=== PATIENT | male | born 1975 | race Caucasian/White ===

== ENCOUNTER 2016-08-12 19:53 | Emergency (ER) | payer MEDICAID ==
[~2016-08-12] VITALS: Ht 165.1 cm; Wt 64.0 kg
[~2016-08-12 19:53] MED LIST: IBUP-1542 PO; IBUP200C11
[2016-08-12 20:09] VITALS: Ht 165.1 cm; Wt 64.0 kg
[2016-08-12] MEDS ORDERED: LIDOCAINE 2% (MDV) 20 ML INJ INJ ONE (21:00)
[2016-08-12] MEDS ORDERED: ONDANSETRON 4 MG INJ IV STA (21:46)
[2016-08-12] MEDS ORDERED: morphine 10 MG INJ IV ONE (22:00)
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
[2016-08-12] MEDS ORDERED: KETOROLAC 30 MG INJ IV STA (23:54)
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
[2016-08-13] MEDS ORDERED: CEPH-443 PO (00:05)
[2016-08-13] MEDS ORDERED: IBUP-1542 PO (00:05)
[2016-08-13] MEDS ORDERED: HYDR-906 PO (00:05)
[2016-08-13 00:45] VITALS: BP 113/62; PULSE 68; RESP 17; TEMP 98.2
--- NOTE | 2016-08-13 01:01 | RADRPT ---
PROCEDURE: X-ray rib series CLINICAL INDICATION: right rib pain TECHNIQUE: Multiple images of the right ribs are obtained. COMPARISON: None available FINDINGS: Visualized osseous structures appear intact, without evidence of fracture or dislocation. There is no pneumothorax. Soft tissue structures appear within normal limits. IMPRESSION: No rib fracture identified on plain film. RPTAT: HBST .Binu Guaman MD, MD Date Time Electronically viewed and signed by .Binu Guaman MD, on 08/13/2016 01:00 .T/
--- NOTE | 2016-08-13 01:03 | RADRPT ---
PROCEDURE: XR Lumbar Spine. CLINICAL INDICATION: right sided back pain TECHNIQUE: AP, lateral and cone-down lateral views of the lumbar spine were obtained. COMPARISON: No prior studies are available for comparison. FINDINGS: There is a normal lumbar lordosis. Vertebral body heights appear normal. Intervertebral disk spaces are maintained There is no fracture or dislocation. The facet joints are unremarkable. There is no pars defect identified. The sacroiliac joints appear normal. The soft tissues appear unremarkable. IMPRESSION: Unremarkable lumbar spine. No visualized fracture or dislocation. RPTAT: HBST .Binu Guaman MD, MD Date Time Electronically viewed and signed by .Binu Guaman MD, on 08/13/2016 01:02 .T/
[2016-08-13] MEDS ORDERED: AMOX1TAB10 PO (02:23)
== END 2016-08-13 02:56 | disposition home or self-care (01) ==
LOC: FTE 19:53
DX: S01.81XA Laceration without foreign body of other part of head, initial encounter (principal); S01.01XA Laceration without foreign body of scalp, initial encounter; X99.0XXA Assault by sharp glass, initial encounter
CPT/HCPCS: 12002; 70450; 70486; 71100; 72100; 86703; 86706; 86803; 87340; 96374; 96375; J1885; J2270; J2405; Z7502; Z7610

== ENCOUNTER 2016-08-21 18:39 | Emergency (ER) | payer MEDICAID ==
[~2016-08-21] VITALS: Ht 157.5 cm; Wt 63.0 kg
[~2016-08-21 18:39] MED LIST changes: +AMOX1TAB10 PO; +CEPH-443 PO; +HYDR-906 PO
[2016-08-21 18:55] VITALS: Ht 157.5 cm; Wt 63.0 kg
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
== END 2016-08-21 19:51 | disposition home or self-care (01) ==
LOC: E/R 18:39
DX: Z48.02 Encounter for removal of sutures (principal)
CPT/HCPCS: 99281

== ENCOUNTER 2016-10-20 15:03 | Emergency (ER) | payer MEDICAID ==
[~2016-10-20] VITALS: Ht 157.5 cm; Wt 65.0 kg
[2016-10-20 15:10] VITALS: Ht 157.5 cm; Wt 65.0 kg
[2016-10-20] MEDS ORDERED: MECLIZINE 12.5 MG TAB PO ONE (17:00)
--- NOTE | 2016-10-20 17:23 | RADRPT ---
PROCEDURE: XR Chest. CLINICAL INDICATION: dizziness TECHNIQUE: Single frontal view of the chest was obtained. COMPARISON: Chest X-ray from 12/30/2015 FINDINGS: The heart and mediastinum are within normal limits. The lungs are clear. There is no significant pleural effusion or pneumothorax. IMPRESSION: No acute disease. RPTAT: EE Physician Michelet Date Time Electronically viewed and signed by Bradly Ponce Physician on 10/20/2016 17:22 RA/
[2016-10-20] MEDS ORDERED: ONDA4TAB14 PO (17:27)
[2016-10-20] MEDS ORDERED: ACET500C5 PO (17:27)
[2016-10-20] MEDS ORDERED: EXCED PO (17:27)
[2016-10-20] MEDS ORDERED: MECL12.574 PO (17:27)
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
== END 2016-10-20 17:38 | disposition home or self-care (01) ==
LOC: FTE 15:03
DX: R42 Dizziness and giddiness (principal); R51 Headache
CPT/HCPCS: 71010; 93005; Z7502; Z7610